=== PATIENT | male | born 1990 | race Caucasian/White ===

== ENCOUNTER 2017-11-08 06:25 | Day surgery (SDC) | payer OTHER ==
[~2017-11-08] VITALS: Ht 182.9 cm; Wt 94.8 kg
[~2017-11-08 06:25] MED LIST: ALL DAY ALLERGY10 M1 PO; LEVETIRACETAM500 MG PO; LEVETIRACETAM750 MG PO; MELATONIN3 MG PO; OMEPRAZOLE20 MG PO
--- NOTE | 2017-11-08 08:28 | NUR ---
11/08/17 0828 Monica Hernandez 0812 PT ARRIVED IN PACU SLEEPY WITH NO C/O'S. TRANSPORT GUARDS AT BEDSIDE. 0820 OXYGEN DECREASED TO 1L VIA NC WITH SATS 100%.
--- NOTE | 2017-11-08 16:54 | OR ---
[facility] [place] [facility] [address], [place] [address] Signed DATE OF OPERATION: 11/08/2017 SURGEON: Kirk Juan MD PREOPERATIVE DIAGNOSES: 1. Post cholecystectomy diarrhea (2010). 2. Gastroesophageal reflux disease. 3. History of Helicobacter pylori. 4. Periumbilical pain. POSTOPERATIVE DIAGNOSES: 1. Twel-xw-gunyohea diffuse gastritis. 2. Unremarkable colonoscopy. PROCEDURES PERFORMED: 1. Esophagogastroduodenoscopy with CLOtest and biopsies of the duodenum and antrum. 2. Colonoscopy with cold biopsies of the terminal ileum and random biopsies in the colon. ESTIMATED BLOOD LOSS: None. INDICATIONS FOR PROCEDURE: Carlito is a 27-year-old gentleman from our [facility] [place]. He said he has had diarrhea ever since his gallbladder came out in 2010. He tried some Imodium and said he did not like the side effects. He has been tested in the past. Apparently, he was H pylori positive. He talked about acid reflux and periumbilical pain as well. He is yet to try any fiber or cholestyramine. I was asked to see him for upper and lower endoscopy with biopsies. I met with Carlito and I described to him upper and lower endoscopy. We have reviewed the nature of the 2 tests along with the risks including, but are not limited to gas, bloating, crampy abdominal pain, bleeding, perforation, requiring surgery, and missed diagnosis. We also discussed the need for IV conscious sedation. He had expressed understanding and wished to proceed. DESCRIPTION OF PROCEDURE: Carlito was taken into our endoscopy suite and placed in the supine position. The posterior oropharynx was anesthetized with Hurricaine spray. A bite block was utilized for the case. In total, he was given 10 mg of Versed and 200 mcg of fentanyl to cover both the upper and lower endoscopy. The adult gastroscope was introduced and advanced all the way out into the third portion of the duodenum under direct visualization of camera without difficulty. The duodenum and pyloric channel were unremarkable. We have Electronically Signed By: KIRK JUAN MD 11/08/17 1654 PATIENT NAME: CARLITO PRAJAPATI OPERATIVE REPORT DATE OF : 88 REPORT #: [id number] PHYSICIAN: KIRK JUAN MD PCP: SHENA KWONG MD REPORT IS CONFIDENTIAL AND NOT TO BE RELEASED WITHOUT AUTHORIZATION [facility] [address], [place] [address] Signed taken biopsy of the duodenum for pathologic review. The stomach showed [id number] diffuse erythematous changes throughout. Consequently, we took a biopsy of the antrum for CLOtest as well as pathologic review. Upon retroflexion of the scope, we did not see an obvious hiatal hernia. There were no ulcerations. No gastric or esophageal varices. The scope was withdrawn up through the area of the GE junction, which was compliant without stricture. The Z-line remains relatively intact. The middle and upper esophagus were unremarkable. No esophagitis. No Arndt's mucosa. After this, the gas was suctioned out and the gastroscope removed. Carlito tolerated the procedure quite well. Carlito was rotated into the left lateral decubitus position. He was maintained on IV sedation with Versed and fentanyl. A digital rectal exam was performed and this was unremarkable. The adult colonoscope was introduced and advanced all around into the cecum under direct visualization of camera without difficulty. His prep was good. We turned the scope and went up into the terminal ilium about 10-15 cm. It looked healthy. We took 2 biopsies out of the terminal ileum because of the history of diarrhea. The scope was brought back into the colon and was slowly withdrawn. We saw no pathology throughout the entire colon or rectum. We did take random biopsies in the colon for pathologic review. Upon retroflexion of the scope, there was no additional pathology noted above the anal canal. After this, the gas was suctioned out and the colonoscope removed. Carlito tolerated the procedure quite well. RECOMMENDATIONS: I will see Carlito in the weeks ahead and we will review his biopsy results. He might consider some fiber in his diet and if that is not helpful, we could consider cholestyramine. Kirk Juan MD ALB/MODL /[id number] cc: Peewee Cardona MD Copies: PEEWEE CARDONA MD Electronically Signed By: KIRK JUAN MD 11/08/17 1654 PATIENT NAME: CARLITO PRAJAPATI OPERATIVE REPORT DATE OF : 88 REPORT #: [id number] PHYSICIAN: KIRK JUAN MD PCP: SHENA KWONG MD REPORT IS CONFIDENTIAL AND NOT TO BE RELEASED WITHOUT AUTHORIZATION [address] [address] Signed ~ Electronically Signed By: KIRK JUAN MD 11/08/17 1654 PATIENT NAME: CARLITO PRAJAPATI OPERATIVE REPORT DATE OF : 88 REPORT #: [id number] PHYSICIAN: KIRK JUAN MD PCP: SHENA KWONG MD REPORT IS CONFIDENTIAL AND NOT TO BE RELEASED WITHOUT AUTHORIZATION
== END 2017-11-08 08:45 | disposition home or self-care (01) ==
LOC: DS 06:25 → OPS 06:25 → DS 06:45 → OPS 08:45
PROVIDERS: Colon & Rectal Surgery
PROC: 0DBB8ZX Excision of Ileum, Via Natural or Artificial Opening Endoscopic, Diagnostic (ICD-10-PCS; 2017-11-08)
PROC: 0DBE8ZX Excision of Large Intestine, Via Natural or Artificial Opening Endoscopic, Diagnostic (ICD-10-PCS; 2017-11-08)
PROC: 0DB98ZX Excision of Duodenum, Via Natural or Artificial Opening Endoscopic, Diagnostic (ICD-10-PCS; principal; 2017-11-08 06:45)
PROC: 0DB78ZX Excision of Stomach, Pylorus, Via Natural or Artificial Opening Endoscopic, Diagnostic (ICD-10-PCS; 2017-11-08 06:45)
DX: R19.7 Diarrhea, unspecified (principal); K29.80 Duodenitis without bleeding; K31.9 Disease of stomach and duodenum, unspecified; K29.50 Unspecified chronic gastritis without bleeding; K21.9 Gastro-esophageal reflux disease without esophagitis; J45.909 Unspecified asthma, uncomplicated; Z79.899 Other long term (current) drug therapy; Z86.19 Personal history of other infectious and parasitic diseases; Z90.49 Acquired absence of other specified parts of digestive tract
CPT/HCPCS: 86677; 99153; G0500; J2250; J3010; J7120